=== PATIENT | female | born 1980 | race African-American/Black ===

== ENCOUNTER 2024-02-21 09:31 | Emergency (ER) | payer MEDICAID, OTHER ==
[~2024-02-21] VITALS: Ht 165.1 cm; Wt 92.0 kg
[2024-02-21 09:33] VITALS: O2SAT 100
[2024-02-21 09:43] VITALS: BP 138/74; PULSE 66; RESP 20; TEMP 98; O2SAT 100
== END 2024-02-21 10:29 | disposition home or self-care (01) ==
LOC: ER 09:54
DX: N64.4 Mastodynia (principal)
CPT/HCPCS: 99281

== ENCOUNTER 2024-04-13 19:01 | Emergency (ER) | payer MEDICAID, OTHER ==
[~2024-04-13] VITALS: Ht 167.6 cm; Wt 91.0 kg
[2024-04-13] MEDS: ACETAMINOPHEN 325MG TABLET PO ONE (02:05)
[2024-04-13 21:46] LABS: BASOPHILS % 0.8 % (0.0-2.0); DIFFERENTIAL COMMENT 0; EOSINOPHILS % 3.6 % (0.0-5.0); HEMOGLOBIN. 12.4 g/dL (12.0-16.0); MEAN CORPUSCULAR HEMOGLOBIN 25.9 pg (28.0-32.0); MEAN CORPUSCULAR HGB CONC 32.7 g/dL (31.0-37.0); MEAN CORPUSCULAR VOLUME 79.1 fL (81.0-99.0); MEAN PLATELET VOLUME 8.2 fl (7.4-10.4); MONOCYTES % 10.2 % (2.0-8.0); NEUTROPHILS % 38.4 % (40.0-76.0); PLATELET 244 x1000/uL (130-400); RED CELL DISTRIBUTION WIDTH 14.5 % (11.6-14.6); WHITE BLOOD COUNT 4.7 x1000/uL (4.5-11.0)
[2024-04-13 21:55] LABS: CHLORIDE 107 mEq/L (98-107); POTASSIUM 3.6 mEq/L (3.5-5.1); SODIUM 138 mEq/L (136-145)
[2024-04-13 21:56] LABS: CALCIUM 9.4 mg/dL (8.7-10.4); CARBON DIOXIDE 24 mEq/L (21-32)
[2024-04-13 22:01] LABS: CREATININE 0.7 mg/dL (0.6-1.0); GLUCOSE 111 mg/dL (70-105); UREA NITROGEN BLOOD 7 mg/dL (9-23)
[2024-04-13 22:03] LABS: ALANINE AMINOTRANSFERASE 17 IU/L (10-49); ALBUMIN 4.2 g/dL (3.2-4.8); ASPARTATE AMINOTRANSFERASE 21 IU/L (<34); BILIRUBIN DIRECT 0.1 mg/dL (<=3.0); BILIRUBIN TOTAL 0.4 mg/dL (0.1-1.0); PROTEIN TOTAL 7.4 g/dL (6.0-8.3)
[2024-04-13] MEDS: DEXAMETHASONE 10 MG/ML VIAL PO ONE (22:05)
[2024-04-13 23:04] LABS: HCG SCREEN NEGATIVE
[2024-04-14 01:18] VITALS: BP 133/83; TEMP 36.94740; O2SAT 100
[2024-04-14] MEDS ORDERED: ALBU90AE INH (01:18)
[2024-04-14] MEDS: DEXAMETHASONE 10 MG/ML VIAL PO NR (02:05)
[2024-04-14] MEDS: ACETAMINOPHEN 325MG TABLET PO NR (02:05)
[2024-04-14 02:20] VITALS: PULSE 72; RESP 19; O2SAT 98
[2024-04-14] MEDS: ALBUTEROL (0.083%) 2.5MG/3ML NEB HHN ONE ×2 (02:33→02:42)
[2024-04-14] MEDS: ALBUTEROL (0.083%) 2.5MG/3ML NEB HHN NR (02:42)
== END 2024-04-14 03:09 | disposition home or self-care (01) ==
LOC: ER 19:01
DX: B34.9 Viral infection, unspecified (principal); R68.83 Chills (without fever)
CPT/HCPCS: 80076; 80048; 84703; 83690; 85025; 36415; 71045; 99284; 94640; J1100; Z7610 ×2